=== PATIENT | female | born 2000 | race Caucasian/White ===

== ENCOUNTER 2024-10-19 00:17 | Emergency (ER) | payer OTHER, SELFPAY ==
[2024-10-19 00:58] VITALS: BP 147/88; PULSE 70; RESP 20; TEMP 36.6; O2SAT 99; BMI 33.4
--- NOTE | 2024-10-19 01:01 | DI.RAD.S_ITS ---
PROCEDURE: XR ANKLE RT MIN 3V INDICATIONS: pain, injury TECHNIQUE: 3 views of the ankle were acquired. COMPARISON: None. FINDINGS: Bones: No fractures or dislocations. Ankle mortise is normally aligned. No suspicious bony lesions. Prominent os trigonum. Soft tissues: No tibiotalar joint effusion. Achilles tendon appears normal. IMPRESSION: No acute bony abnormality or significant effusion. Dictated by: Rama Khalil M.D. on 10/19/2024 at 1:54 Approved by: Rama Khalil M.D. on 10/19/2024 at 1:55
--- NOTE | 2024-10-19 02:14 | ED_ITS ---
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 No other injuries recalled. She has tried an [id number] compression wrap support device. Not using crutches. Related Data Allergies Allergy/AdvReac Type Severity Reaction Status Date / Time No Known Drug Allergies Allergy Verified 10/19/24 00:58 Patient History Social History Smoking Status: Never smoker Smoking Status: Never smoker Exam Narrative Exam Narrative: GENERAL: Well-developed patient, in mild distress. HEAD: Atraumatic. Normocephalic. EYES: Pupils equal round and reactive. Extraocular motions intact. No scleral icterus. No injection or drainage. ENT: No obvious facial or anterior neck injuries CARDIOVASCULAR: Regular rate and rhythm without murmurs, gallops, or rubs. RESPIRATORY: Clear to auscultation. Breath sounds equal bilaterally. No wheezes, rales, or rhonchi. GASTROINTESTINAL: Abdomen soft, non-tender EXTREMITIES: Right ankle tenderness anterolateral right joint line, no medial tenderness, no tenderness posteriorly lateral malleolus. No tenderness base of 5th metatarsal foot. BACK: Nontender without deformity or crepitance. No flank tenderness. NEURO: AOx3. Motor functions grossly nonfocal. SKIN: No rash or erythema of visible areas Initial Vital Signs Initial Vital Signs: Vital Signs Temperature 97.9 F 10/19/24 00:58 Pulse Rate 70 10/19/24 00:58 Respiratory Rate 20 10/19/24 00:58 Blood Pressure 147/88 H 10/19/24 00:58 Pulse Oximetry 99 10/19/24 00:58 Oxygen Delivery Method Room Air 10/19/24 00:58 Course Orders Ordered: ED Orders 10/19/24 01:01 XR ankle RT min 3V Stat Vital Signs Vital signs: Vital Signs - 8 hr 10/19/24 00:58 Temperature 97.9 F Pulse Rate 70 Respiratory Rate 20 Blood Pressure 147/88 H Pulse Oximetry 99 Oxygen Delivery Method Room Air MDM - Extremity Injury (Lower) Imaging Data Extremity x-ray #1: Radiologist's Impression: [address] [id number] XRay Report Signed Patient: Katelyn Peres MR#: [id number] : 2000 Acct:[id number] Age/Sex: 23 / F Date of Service: 10/19/24 Loc: ED Accession Number: [id number] Procedure: XR ankle RT min 3V Ordering Provider: Kel Russell MD PROCEDURE: XR ANKLE RT MIN 3V INDICATIONS: pain, injury TECHNIQUE: 3 views of the ankle were acquired. COMPARISON: None. FINDINGS: Bones: No fractures or dislocations. Ankle mortise is normally aligned. No suspicious bony lesions. Prominent os trigonum. Soft tissues: No tibiotalar joint effusion. Achilles tendon appears normal. IMPRESSION: No acute bony abnormality or significant effusion. Dictated by: Rama Khalil M.D. on 10/19/2024 at 1:54 Approved by: Rama Khalil M.D. on 10/19/2024 at 1:55 MDM Narrative Medical decision making narrative: 23-year-old female with right ankle strain 3 days ago, using [id number] compression device. 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 Painful to ambulate. X-ray right ankle series ordered from triage negative for fracture. Offered crutches, declined. Off work for 2 days, rest, compression, ice, elevation. Recheck [facility] if still holding significant pain in 2 days. Return precautions discussed. Discharge Plan Departure Patient Disposition: Home Clinical Impression: Right ankle strain Instructions: DI for Ankle Sprain Activity Restrictions/Additional Instructions: Right ankle strain clinically, x-ray negative for fracture. Some anterolateral ankle area discomfort. Painful ambulation. Can continue use of [id number] compression support wrap sleeve. Consider use of ibuprofen, rest, ice, elevation. Off work for the next 2 days. Recheck if not significantly improved in the next 2 days with your regular provider. Return earlier to this/nearest emergency department for any change worsening symptoms or any concerns prior. Stand Alone Forms: Patient Portal/API, Work Release Note
== END 2024-10-19 02:35 | disposition home or self-care (01) ==
PROVIDERS: Emergency Provider Emergency Medicine
DX: S96.911A Strain of unspecified muscle and tendon at ankle and foot level, right foot, initial encounter (principal); X50.1XXA Overexertion from prolonged static or awkward postures, initial encounter
CPT/HCPCS: 73610; 99281; 99283